=== PATIENT | female | born 1955 | race Caucasian/White ===

== ENCOUNTER 2018-07-10 23:01 | Inpatient (IN) | payer MEDICARE, MEDICAID ==
[~2018-07-10] VITALS: Ht 165.1 cm; Wt 88.5 kg
[2018-07-11] MEDS ORDERED: LEVETIRACETAM 500MG PREMIX 100 ML IV ONE (02:30)
[2018-07-11 03:03] LABS: BASOPHILS % 0.5 % (0.0-2.0); EOSINOPHILS % 1.2 % (0.0-5.0); HEMATOCRIT. 42.4 % (36.0-48.0); HEMOGLOBIN. 14.3 g/dL (12.0-16.0); LYMPHOCYTES % 21.2 % (20.0-50.0); MEAN CORPUSCULAR HEMOGLOBIN 28.6 pg (28.0-32.0); MEAN CORPUSCULAR VOLUME 85.1 fL (81.0-99.0); MEAN PLATELET VOLUME 8.9 fl (7.4-10.4); MONOCYTES % 6.4 % (2.0-8.0); NEUTROPHILS % 70.7 % (40.0-76.0); PLATELET 341 x1000/uL (130-400); RED BLOOD CELL COUNT 4.99 mill/uL (4.2-5.4)
[2018-07-11 03:04] LABS: CHLORIDE 94 mEq/L (98-107)
[2018-07-11] MEDS ORDERED: ASPIRIN 81MG TABLET PO ONE (04:00)
[2018-07-11] MEDS ORDERED: MAGNESIUM/ALUMINUM HYDROXIDE/SIMETHICONE 30ML UDC PO PRN (08:45)
[2018-07-11] MEDS ORDERED: GUAIFENESIN 200MG/10ML SUGAR FREE UDC PO PRN (08:45)
[2018-07-11] MEDS ORDERED: ONDANSETRON HCL 4MG/2ML INJ IV PRN (08:45)
[2018-07-11] MEDS ORDERED: ACETAMINOPHEN 325MG TABLET PO PRN (08:45)
[2018-07-11] MEDS ORDERED: DOCUSATE SODIUM 100MG CAPSULE PO PRN (08:45)
[2018-07-11] MEDS ORDERED: CLONIDINE 0.1MG TABLET PO PRN (08:45)
[2018-07-11] MEDS ORDERED: IPRATROPIUM/ALBUTEROL 0.5-3(2.5)MG/3ML NEB INH PRN (08:45)
[2018-07-11] MEDS ORDERED: LORAZEPAM 2MG/ML CPJ IV PRN (08:45)
[2018-07-11] MEDS ORDERED: LEVETIRACETAM 500MG PREMIX 100 ML IV SCH (11:30)
[2018-07-11 15:54] LABS: CREATINE KINASE MB FRACTION 2.7 ng/mL (0.5-3.6)
[2018-07-11 17:00] VITALS: BP 117/70
[2018-07-11 17:22] VITALS: BP 117/70
[2018-07-11] MEDS: AMLODIPINE 5MG TABLET PO SCH (18:33)
[2018-07-11] MEDS: HYDROCODONE/ACETAMINOPHEN 5/325MG TABLET PO PRN (18:33)
[2018-07-11] MEDS ORDERED: DEXTROSE 50% WATER 50ML SYRINGE IV PRN ×3 (19:15→19:30)
[2018-07-11] MEDS ORDERED: NON FORMULARY PATIENT HOME MED EA XX SCH (19:45)
[2018-07-11 20:00] VITALS: BP 127/75
[2018-07-11] MEDS ORDERED: INSULIN LISPRO 100 UNITS/ML SUBCUT NR (20:00)
[2018-07-11] MEDS: SODIUM CHLORIDE 0.9% 1,000 ML IV SCH ×2 (20:03→21:55)
[2018-07-11] MEDS ORDERED: INSULIN LISPRO 100 UNITS/ML SUBCUT SCH (21:00)
[2018-07-11] MEDS ORDERED: BLOOD SUGAR DIAGNOSTIC STRIP TEST SCH (21:00)
[2018-07-11] MEDS: BLOOD SUGAR DIAGNOSTIC STRIP TEST SCH (21:50)
[2018-07-11] MEDS: INSULIN LISPRO 100 UNITS/ML SUBCUT SCH (21:51)
[2018-07-11] MEDS ORDERED: INSULIN GLARGINE UD 100 UNITS/ML SYR SUBCUT SCH (22:00)
[2018-07-12] VITALS: BP 108/59
[2018-07-12 01:36] LABS: CREATINE KINASE MB FRACTION 2.1 ng/mL (0.5-3.6)
[2018-07-12] MEDS ORDERED: LEVETIRACETAM 500MG PREMIX 100 ML IV SCH (03:30)
[2018-07-12] MEDS: LEVETIRACETAM 500MG in SODIUM CHLORIDE 0.9% 100ML IV SCH ×2 (03:42→16:57)
[2018-07-12 04:00] VITALS: BP 123/63
[2018-07-12] MEDS: BLOOD SUGAR DIAGNOSTIC STRIP TEST SCH ×3 (05:57→21:00)
[2018-07-12] MEDS: INSULIN LISPRO 100 UNITS/ML SUBCUT SCH ×3 (06:12→21:43)
[2018-07-12 07:46] LABS: BASOPHILS % 0.8 % (0.0-2.0); EOSINOPHILS % 5.9 % (0.0-5.0); HEMATOCRIT. 41.5 % (36.0-48.0); HEMOGLOBIN. 13.9 g/dL (12.0-16.0); LYMPHOCYTES % 38.1 % (20.0-50.0); MEAN CORPUSCULAR HEMOGLOBIN 28.6 pg (28.0-32.0); MEAN CORPUSCULAR VOLUME 85.7 fL (81.0-99.0); MEAN PLATELET VOLUME 8.6 fl (7.4-10.4); MONOCYTES % 6.6 % (2.0-8.0); NEUTROPHILS % 48.6 % (40.0-76.0); PLATELET 338 x1000/uL (130-400); RED BLOOD CELL COUNT 4.85 mill/uL (4.2-5.4); RED CELL DISTRIBUTION WIDTH 13.1 % (11.6-14.6)
[2018-07-12 08:00] VITALS: BP 114/52
[2018-07-12 08:36] LABS: CHLORIDE 101 mEq/L (98-107)
[2018-07-12 08:45] LABS: LDL CHOLESTEROL 123 mg/dL (5-100)
[2018-07-12 08:46] LABS: HDL CHOLESTEROL 37 mg/dL (40-59)
[2018-07-12 08:47] LABS: T4 FREE 0.89 ng/dL (0.76-1.46)
[2018-07-12] MEDS: AMLODIPINE 5MG TABLET PO SCH (09:50)
[2018-07-12] MEDS: SODIUM CHLORIDE 0.9% 1,000 ML IV SCH (10:25)
[2018-07-12 12:00] VITALS: BP 109/56
[2018-07-12 16:00] VITALS: BP 113/60
[2018-07-12 20:00] VITALS: BP 139/74
[2018-07-12] MEDS: HYDROCODONE/ACETAMINOPHEN 5/325MG TABLET PO PRN (21:04)
[2018-07-12] MEDS: INSULIN GLARGINE UD 100 UNITS/ML SYR SUBCUT SCH (21:44)
[2018-07-13] VITALS: BP 125/51
[2018-07-13] MEDS: LEVETIRACETAM 500MG in SODIUM CHLORIDE 0.9% 100ML IV SCH (03:17)
[2018-07-13] MEDS: SODIUM CHLORIDE 0.9% 1,000 ML IV SCH (03:27)
[2018-07-13 04:00] VITALS: BP 118/59
[2018-07-13] MEDS: BLOOD SUGAR DIAGNOSTIC STRIP TEST SCH ×3 (06:18→17:06)
[2018-07-13] MEDS: INSULIN LISPRO 100 UNITS/ML SUBCUT SCH ×3 (06:34→17:13)
[2018-07-13] MEDS ORDERED: GLIPIZIDE 10MG TABLET PO SCH ×2 (06:45→17:00)
[2018-07-13 08:00] VITALS: BP 158/84
[2018-07-13] MEDS: AMLODIPINE 5MG TABLET PO SCH (09:12)
[2018-07-13] MEDS: INSULIN GLARGINE UD 100 UNITS/ML SYR SUBCUT SCH (09:14)
[2018-07-13 09:48] LABS: BASOPHILS % 0.7 % (0.0-2.0); EOSINOPHILS % 5.4 % (0.0-5.0); HEMATOCRIT. 40.1 % (36.0-48.0); HEMOGLOBIN. 13.3 g/dL (12.0-16.0); LYMPHOCYTES % 36.5 % (20.0-50.0); MEAN CORPUSCULAR HEMOGLOBIN 28.7 pg (28.0-32.0); MEAN CORPUSCULAR VOLUME 86.3 fL (81.0-99.0); MEAN PLATELET VOLUME 8.8 fl (7.4-10.4); MONOCYTES % 7.2 % (2.0-8.0); NEUTROPHILS % 50.2 % (40.0-76.0); PLATELET 330 x1000/uL (130-400); RED BLOOD CELL COUNT 4.65 mill/uL (4.2-5.4); RED CELL DISTRIBUTION WIDTH 13.1 % (11.6-14.6)
[2018-07-13 10:37] LABS: CHLORIDE 105 mEq/L (98-107)
[2018-07-13 12:00] VITALS: BP 129/69
[2018-07-13 16:00] VITALS: BP 142/62
[2018-07-13] MEDS ORDERED: METFORMIN HCL 500MG TABLET PO SCH (17:15)
[2018-07-13 18:54] VITALS: BP 129/69
[2018-07-13] MEDS ORDERED: LEVETIRACETAM 500MG TABLET PO SCH (21:00)
== END 2018-07-13 19:20 | disposition home or self-care (01) | DRG 100 ==
LOC: ER 23:01 → EDSEX 23:01 → 5WST 07-11 03:54 → EDBEDREQTM 07-11 03:55 → EDBEDREQ 07-11 03:55 → ENRESERV 07-11 15:46
PROVIDERS: ADMIT Internal Medicine; ATTEND Internal Medicine
DX: G40.89 Other seizures (principal); G92 Toxic encephalopathy; N17.9 Acute kidney failure, unspecified; E87.1 Hypo-osmolality and hyponatremia; E78.5 Hyperlipidemia, unspecified; E11.65 Type 2 diabetes mellitus with hyperglycemia; E87.8 Other disorders of electrolyte and fluid balance, not elsewhere classified; I11.9 Hypertensive heart disease without heart failure; J45.909 Unspecified asthma, uncomplicated; Z79.4 Long term (current) use of insulin; Z88.0 Allergy status to penicillin
CPT/HCPCS: 36415; 70551; 71045; 80048; 80061; 82550; 82553; 82962; 83036; 83605; 84439; 84443; 84481; 84484; 93005; 93306; 93970; 96365; 96366; 97162; 99291; J1815; J1953; J7030; J7050